=== PATIENT | male | born 1995 | race Hispanic/Latino ===

== ENCOUNTER 2022-05-02 10:19 | Emergency (ER) | payer SELFPAY ==
[2022-05-02] MEDS ORDERED: Boostrix 0.5 ML (Tdap) VIAL (>/=7 yrs of age) ONE (10:41)
[2022-05-02] MEDS ORDERED: Lidocaine 1% (PF) 30 ML VIAL ONE (11:15)
[2022-05-02] MEDS ORDERED: Bacitracin 1 PK ONE (12:30)
== END 2022-05-02 12:32 | disposition home or self-care (01) ==
LOC: CSHERS 10:19
DX: S61.311A Laceration without foreign body of left index finger with damage to nail, initial encounter (principal); W26.8XXA Contact with other sharp object(s), not elsewhere classified, initial encounter
CPT/HCPCS: 12001; 90471; 90715; J2001